=== PATIENT | female | born 1965 | race Caucasian/White ===

== ENCOUNTER → 2017-04-10 | Outpatient (CLI) | payer BC ==
[~2017-04-10] MED LIST: LINZESS290CAP PO; TYLENOL 500MG500 MG PO; ZORVOLEX18 MG PO
== END ==
LOC: MC.RAD 10:32
DX: Z12.31 Encounter for screening mammogram for malignant neoplasm of breast (principal); R92.1 Mammographic calcification found on diagnostic imaging of breast

== ENCOUNTER → 2017-04-15 | Outpatient (CLI) | payer BC | LOC: MC.RAD 14:00 | DX: R92.0 Mammographic microcalcification found on diagnostic imaging of breast (principal) ==

== ENCOUNTER → 2017-04-16 | Outpatient (CLI) | payer BC | LOC: MC.RAD 08:21 | DX: N60.12 Diffuse cystic mastopathy of left breast (principal); N60.82 Other benign mammary dysplasias of left breast; R92.0 Mammographic microcalcification found on diagnostic imaging of breast ==

== ENCOUNTER → 2019-03-29 | Outpatient (CLI) | payer BC | LOC: MC.RAD 10:35 | DX: Z12.31 Encounter for screening mammogram for malignant neoplasm of breast (principal) ==

== ENCOUNTER → 2020-08-15 | Outpatient (CLI) | payer BC | LOC: MC.RAD 12:53 | DX: Z12.31 Encounter for screening mammogram for malignant neoplasm of breast (principal) ==

== ENCOUNTER → 2022-04-02 | Outpatient (CLI) | payer BC | LOC: MC.RAD 12:57 | DX: Z12.31 Encounter for screening mammogram for malignant neoplasm of breast (principal) ==